=== PATIENT | female | born 1945 | race Caucasian/White ===

== ENCOUNTER 2016-06-02 20:13 | Observation (INO) | payer MEDICARE ==
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
[2016-06-02 17:57] LABS: BASOPHILS 0.3 %; BASOPHILS ABSOLUTE 0.02 10/3/uL (0.0-0.16); EOSINOPHILS 0.8 %; EOSINOPHILS ABSOLUTE 0.06 10/3/uL (0.0-0.53); HEMATOCRIT 41.4 % (36.0-48.0); HEMOGLOBIN 14.2 g/dL (12.0-16.0); IMMATURE GRANULOCYTES 0.3 %; IMMATURE GRANULOCYTES ABSOLUTE 0.02 10/3/uL (0.0-0.11); LYMPHOCYTES 36.6 %; LYMPHOCYTES ABSOLUTE 2.69 10/3/uL (0.67-4.30); MEAN CORPUS HGB CONC 34.3 g/dL (32.0-36.0); MEAN CORPUSCULAR HEMOGLOB 29.3 pg (26.0-34.0); MEAN CORPUSCULAR VOLUME 85.5 fL (80-100); MEAN PLATELET VOLUME 11.6 fL (9.2-13.0); MONOCYTES ABSOLUTE 0.37 10/3/uL (0.21-1.20); NEUTROPHILS ABSOLUTE 4.19 10/3/uL (2.02-8.40); PLATELET COUNT 167 10/3/uL (150-400); RBC DISTRIBUTION WIDTH 13.6 % (12.0-16.0); RED CELL COUNT 4.84 10/6/uL (4.0-5.6); WHITE BLOOD CELLS 7.4 10/3/uL (4.5-10.5)
[2016-06-02 17:58] LABS: MANUAL DIFF NO %
[2016-06-02 18:04] LABS: INTERNATIONAL NORMAL RATI 1.1 UNITS (-); PARTIAL THROMBO TIME 26.1 SEC (22.5-37.2); PROTIME (NOT ORD) 14.3 SEC (12.0-14.5)
[2016-06-02 18:13] LABS: BUN (BLOOD UREA NITROGEN) 15 MG/DL (6-23); CALCIUM, SERUM 8.4 MG/DL (8.5-10.4); CHEST PAIN PROFILE TAT 0 Hrs 20 Mins; CHLORIDE, SERUM 107 MMOL/L (96-112); CO2 (CARBON DIOXIDE) 25 MMOL/L (24-34); CREATININE 0.74 MG/DL (0.55-1.02); GFR AFRICAN AMERICAN 95 ML/MIN (>=60); GFR NON AFRICAN AMERICAN 82 ML/MIN (>=60); POTASSIUM, SERUM 3.5 MMOL/L (3.5-5.3); SODIUM, SERUM 141 MMOL/L (135-148); TROPONIN I <0.02 NG/ML (<0.05)
[2016-06-02 18:14] LABS: GLUCOSE, SERUM 187 MG/DL (60-99)
[~2016-06-02 20:13] MED LIST: ADVIL PO; ASAB PO; CINAMMON PO; EXCEDRIN MIGRA1 EAC1 PO; FISH-EPA1000 MG PO; HUMALOG SC; LANTUS SC; LUMIGAN OPH; PERCOCET1 TA4 PO; THERA TEARS PO; TOPXL50 PO; VESICARE10 MG PO; [UNRECOGNIZED DRUG - REMARK]
[2016-06-02] MEDS ORDERED: ASAB PO (21:07)
[2016-06-02] MEDS ORDERED: LUMIGAN2.5 ML OPH (21:07)
[2016-06-02] MEDS ORDERED: TOPXL50 PO (21:08)
[2016-06-02] MEDS ORDERED: HUMALOG SC (21:09)
[2016-06-02] MEDS ORDERED: LANTUS SC (21:09)
[2016-06-02] MEDS ORDERED: ACET500CAP PO (21:10)
[2016-06-02] MEDS ORDERED: OCEAN NAS (21:11)
[2016-06-02] MEDS ORDERED: TEARS PURE OPH (21:12)
[2016-06-02] MEDS ORDERED: ALEVE220 MG PO (21:12)
[2016-06-03 05:07] LABS: BUN (BLOOD UREA NITROGEN) 13 MG/DL (6-23); CALCIUM, SERUM 8.3 MG/DL (8.5-10.4); CHLORIDE, SERUM 106 MMOL/L (96-112); CO2 (CARBON DIOXIDE) 28 MMOL/L (24-34); CREATININE 0.73 MG/DL (0.55-1.02); GFR AFRICAN AMERICAN 97 ML/MIN (>=60); GFR NON AFRICAN AMERICAN 83 ML/MIN (>=60); GLUCOSE, SERUM 217 MG/DL (60-99); POTASSIUM, SERUM 3.6 MMOL/L (3.5-5.3); SODIUM, SERUM 142 MMOL/L (135-148)
[2016-06-03 12:52] LABS: TROPONIN I <0.02 NG/ML (<0.05)
[2016-06-03] MEDS ORDERED: PRIN5 PO (17:01)
== END 2016-06-03 17:22 | disposition home or self-care (01) ==
LOC: ER 20:13 → CDU1 21:42 → CDU2 22:24
PROVIDERS: Clinical Nurse Specialist; Emergency Medicine
DX: R07.2 Precordial pain (principal); E11.9 Type 2 diabetes mellitus without complications; G47.30 Sleep apnea, unspecified; E66.9 Obesity, unspecified; M85.80 Other specified disorders of bone density and structure, unspecified site; F41.9 Anxiety disorder, unspecified; F32.9 Major depressive disorder, single episode, unspecified; K58.9 Irritable bowel syndrome, unspecified; H40.9 Unspecified glaucoma; J32.9 Chronic sinusitis, unspecified; K57.90 Diverticulosis of intestine, part unspecified, without perforation or abscess without bleeding; Z88.1 Allergy status to other antibiotic agents; Z88.2 Allergy status to sulfonamides; Z88.5 Allergy status to narcotic agent
CPT/HCPCS: 71020; 78452; 80048; 82962; 83735; 83880; 84484; 85025; 85610; 85730; 93005; 93017; 96374; 96376; 99285; A9270-GY; A9502; G0378; J0280; J0360; J2785